=== PATIENT | male | born 1990 | race Caucasian/White ===

== ENCOUNTER 2017-02-25 11:18 | Emergency (ER) | payer OTHER ==
[~2017-02-25] VITALS: Ht 170.2 cm; Wt 77.1 kg
[~2017-02-25 11:18] MED LIST: NAPROXEN500 MG PO; NORCO 5-325 TA1 EACH PO
== END 2017-02-25 12:00 | disposition home or self-care (01) ==
LOC: ED 11:18
DX: Z00.8 Encounter for other general examination (principal)

== ENCOUNTER 2017-04-10 21:20 | Emergency (ER) | payer OTHER ==
[~2017-04-10] VITALS: Ht 170.2 cm; Wt 180.0 kg
--- OUTSIDE RECORDS SUMMARY | ~2017-04-10 | XMS | Clinical Summary ---
Demographics + + + | Address | [address] | | | [place] [address] | + + + | Home Phone | | + + + | Preferred Language | Unknown | + + + | Marital Status | Single | + + + | Restorationist Affiliation | Unknown | + + + | Race | Unknown | + + + | Ethnic Group | Other Race | + + + Author + + + | Author | [facility] | + + + | Organization | [facility] | + + + | Address | Unknown | + + + | Phone | Unavailable | + + + Support +------+ +---------+ + | Name | Relationship | Address | Phone | +------+ +---------+ + ECON | Unknown | | +------+ +---------+ + Care Team Providers + +------+ + | Care Link Assembler Name | Role | Phone | + +------+ + | No Pcp Per Patient | PP | Unavailable | + +------+ + Source Comments BUDDY is fully live on both [facility] Ambulatory and [facility] InPatient.[facility] Allergies + + + + + + [...]
--- OUTSIDE RECORDS SUMMARY | ~2017-04-10 | XMS | Clinical Summary ---
Demographics + + + | Address | [address] | | | [place] [address] | + + + | Home Phone | | + + + | Preferred Language | Unknown | + + + | Marital Status | Single | + + + | Buddhism Affiliation | Unknown | + + + | Race | Unknown | + + + | Ethnic Group | Other Race | + + + Author + + + | Author | [facility] | + + [...] Team Providers + +------+ + | Care Professional Development Instructor Name | Role | Phone | + +------+ + | No Pcp Per Patient | PP | Unavailable | + +------+ + Source Comments BUDDY is fully live on both [facility] Ambulatory and [facility] InPatient.[facility] Allergies + + + + + + [...]
== END 2017-04-10 23:05 | disposition home or self-care (01) ==
LOC: ED 21:20
DX: S46.911A Strain of unspecified muscle, fascia and tendon at shoulder and upper arm level, right arm, initial encounter (principal); S20.211A Contusion of right front wall of thorax, initial encounter; F17.200 Nicotine dependence, unspecified, uncomplicated; Y04.0XXA Assault by unarmed brawl or fight, initial encounter
CPT/HCPCS: 71045; 73030; 99283

== ENCOUNTER 2017-05-25 12:42 | Emergency (ER) | payer OTHER ==
[~2017-05-25] VITALS: Ht 170.2 cm; Wt 77.1 kg
--- OUTSIDE RECORDS SUMMARY | 2017-05-26 13:19 | XMS | Clinical Summary ---
Demographics + + + | Address | [address] | | | [place] [address] | + + + | Home Phone | | + + + | Preferred Language | Unknown | + + + | Marital Status | Single | + + + | Yarsanism Affiliation | Unknown | + + + | Race | Unknown | + + + | Ethnic Group | Other Race | + + + Author + + + | Author | [facility] | + + + | Organization | [facility] | + + + | Address | Unknown | + + + | Phone | Unavailable | + + + Support + + +---------+ + | Name | Relationship | Address | Phone | + + +---------+ + | KOBE HUGHES | ECON | Unknown | | + + +---------+ + Care Team Providers + +------+ + | Care Offset Pressman Name | Role | Phone | + +------+ + | No Pcp Per Patient | PP | Unavailable | + +------+ + Source Comments BUDDY is fully live on both [facility] Ambulatory and [facility] InPatient.[facility] Allergies + + + + + + | Active Allergy | Reactions | Severity | Noted | Comments | | | | | Date | | + + + + + + | Unable To Assess | Unknown | | 08/01/19 | | | | | | 16 | | + + + + + + Current Medications + + + +---------+------+------+-------+ | Prescription | Sig. | Disp. | Refills | Star | End | Statu | | | | | | t | Date | s | | | | | | Date | | | + + + +---------+------+------+-------+ | oxyCODONE, | Take 1-3 tablets by | 80 | 0 | 05/2 | | Activ | | immediate release, 5 | mouth every four | tablet | | 7/20 | | e | | mg oral tablet | hours as needed for | | | 16 | | | | | moderate pain. | | | | | | + + + +---------+------+------+-------+ | acetaminophen 500 | Take 2 tablets by | 100 | 0 | 05/2 | | Activ | | mg oral tablet | mouth every six | tablet | | 7/20 | | e | | | hours. | | | 16 | | | + + + +---------+------+------+-------+ | | Apply to affected | 28.34 g | 2 | 05/2 | | Activ | | bacitracin-polymyxin | area two times | | | 7/20 | | e | | B 500-10,000 | daily. | | | 16 | | | | unit/gram topical | | | | | | | | ointment | | | | | | | + + + +---------+------+------+-------+ | docusate sodium | Take 1 capsule by | 100 | 0 | 05/2 | | Activ | | 100 mg oral capsule | mouth two times | capsule | | 7/20 | | e | | | daily. | | | 16 | | | + + + +---------+------+------+-------+ | polyethylene | Mix 17 grams of | 119 g | 0 | 05/2 | | Activ | | glycol (MIRALAX) 17 | powder in 4 to 8 | | | 7/20 | | e | | gram/dose oral | ounces of liquid and | | | 16 | | | | powderIndications: | drink by mouth once | | | | | | | constipation | daily as needed. 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 | + + + | Open fracture of frontal bone, initial encounter (HCC) | 08/01/2015 | + + + Social History + + + +--------+------+ | Tobacco Use | Types | Packs/Day | Years | Date | | | | | Used | | + + + +--------+------+ | Current Every Day | Cigarettes | 0.5 | | | | Smoker | | | | | + + + +--------+------+ + +------+---+---+ | Smokeless Tobacco: | Chew | | | | Current User | | | | + +------+---+---+ + + +---------+ + | Alcohol Use | Drinks/We | oz/Week | Comments | | | ek | | | + + +---------+ + | Yes | | | | + + +---------+ + + + + | Sex Assigned at | Date Recorded | | | | + + + | Not on file | | + + + Last Filed Vital Signs + + + + | Vital Sign | Reading | Time Taken | + + + + | Blood Pressure | 127/57 | 08/03/2015 5:22 PM PDT | + + + + | Pulse | 51 | 08/03/2015 5:22 PM PDT | + + + + | Temperature | 36.5 C (97.7 F) | 08/03/2015 5:22 PM PDT | + + + + | Respiratory Rate | 16 | 08/03/2015 5:22 PM PDT | + + + + | Oxygen Saturation | 100% | 08/03/2015 5:22 PM PDT | + + + + | Inhaled Oxygen | - | - | | Concentration | | | + + + + | Weight | 79.2 kg (174 lb 9.7 | 08/01/2015 11:00 AM PDT | | | oz) | | + + + + | Height | 177.8 cm (5' 10") | 08/02/2015 9:06 AM PDT | + + + + | Body Mass Index | 25.05 | 08/01/2015 11:00 AM PDT | + + + + Plan of Treatment + + + + + | Health Maintenance | Due Date | Last Done | Comments | + + + + + | INFLUENZA VACCINE | | | | | (FLU SHOT) | 7 | | | + + + + + Results Not on filefrom Last 3 Months
--- OUTSIDE RECORDS SUMMARY | 2017-05-26 13:19 | XMS | Clinical Summary ---
Demographics + + + | Address | [address] | | | [place] [address] | + + + | Home Phone | | + + + | Preferred Language | Unknown | + + + | Marital Status | Single | + + + | Jewish Affiliation | Unknown | + + + [...] Team Providers + +------+ + | Care Doorshaker Name | Role | Phone | + +------+ + | No Pcp Per Patient | PP | Unavailable | + +------+ + Source Comments BUDDY is fully live on both [facility] Ambulatory and [facility] InPatient.[facility] Allergies + + + + + [...]
== END 2017-05-29 07:40 ==
LOC: ED 12:42
DX: R45.850 Homicidal ideations (principal); F17.200 Nicotine dependence, unspecified, uncomplicated
CPT/HCPCS: 80053; 80176; 81001; 85025; 99285; G0480

== ENCOUNTER 2017-11-07 21:06 | Emergency (ER) | payer SELFPAY ==
[~2017-11-07] VITALS: Ht 170.2 cm; Wt 72.6 kg
== END 2017-11-08 00:11 | disposition home or self-care (01) ==
LOC: ED 21:06
DX: T40.1X1A Poisoning by heroin, accidental (unintentional), initial encounter (principal); F17.200 Nicotine dependence, unspecified, uncomplicated
CPT/HCPCS: 99284

== ENCOUNTER 2018-11-22 09:33 | Emergency (ER) | payer OTHER ==
[~2018-11-22] VITALS: Ht 170.2 cm; Wt 77.1 kg
--- OUTSIDE RECORDS SUMMARY | 2018-11-22 09:36 | XMS ---
PreManage Notification: YOGESH RODRIGUEZ Security Allergy And Immunology Specialist Events 1 event(s) in the past 18 months Most recent security events: Verbal at [facility] 05/25/2017 12:42 - Patient was verbally abusive towards care providers, staff or patient. - Patient verbally threatened care providers, staff or other patients. Details: THREATENING TO KILL PEOPLE-ON PSYCH HOLD CRITERIA MET - Group Notification CARE PROVIDERS OSCAR LÓPEZ [facility] Current PHONE: Unknown [facility] Current PHONE: Unknown [facility] has no Care Guidelines for this patient. E.D. VISIT COUNT (12 MO.) 1 [facility] TOTAL 1 NOTE: Visits indicate total known visits. ED/UCC VISIT TRACKING (12 MO.) 11/22/2018 09:[address] [facility] [place] TYPE: Emergency COMPLAINT: - SKIN PROBLEM INPATIENT VISIT TRACKING (12 MO.) No inpatient visits to display in this time frame [id number]
[2018-11-22] MEDS ORDERED: DIVALPROEX SOD250 MG PO (09:44)
[2018-11-22] MEDS ORDERED: OLANZAPINE10 MG PO (09:44)
[2018-11-22] MEDS ORDERED: PENICILLIN V P500 MG PO (09:44)
[2018-11-22] MEDS ORDERED: CYCLOBENZAPRINE10 MG PO (09:44)
[2018-11-22] MEDS ORDERED: PREDNISONE20 MG PO (10:06)
== END 2018-11-22 11:15 | disposition home or self-care (01) ==
LOC: ED 09:33
DX: L50.9 Urticaria, unspecified (principal); F17.200 Nicotine dependence, unspecified, uncomplicated
CPT/HCPCS: 96372; 99282; 99406; J0171; J7512; Q0163

== ENCOUNTER 2019-09-18 05:23 | Emergency (ER) | payer OTHER ==
[~2019-09-18] VITALS: Ht 170.2 cm; Wt 77.1 kg
[~2019-09-18 05:23] MED LIST changes: +CYCLOBENZAPRINE10 MG PO; +DIVALPROEX SOD250 MG PO; +OLANZAPINE10 MG PO; +PENICILLIN V P500 MG PO; +PREDNISONE20 MG PO
--- OUTSIDE RECORDS SUMMARY | 2019-09-18 05:26 | XMS ---
PreManage Notification: YOGESH RODRIGUEZ Security Management Trainer Events No recent Security Events currently on file CRITERIA MET - Group Notification - [facility] - Has Care Guidelines CARE PROVIDERS PRAKASH KEANE Nurse Practitioner: Family [facility] PHONE: [phone] OSCAR LÓPEZ [facility] Current PHONE: [phone] Guidelines Source: [facility] Guidelines Date: 02/25/2019 Care Coordination: Has\T\nbsp;received\T\nbsp;mental health services with [facility].\T\nbsp; Please contact [facility] with mental health\T\nbsp;concerns.\T\nbsp; [facility] Guajardo: [phone]\T\nbsp; [place]: [phone]. Care History Medical/Surgical 11/23/2018 [facility] CASE MANAGEMENT REFERRAL MADE- PATIENT HAS [facility] AND NO PCP. E.D. VISIT COUNT (12 MO.) [address] [facility] [address] [facility] TOTAL 3 NOTE: Visits indicate total known visits. ED/UCC VISIT TRACKING (12 MO.) 09/18/2019 05:23 [facility] [place] TYPE: Emergency COMPLAINT: - POSS. OVERDOSE 02/18/2019 17:42 [facility] [place] TYPE: Emergency DIAGNOSES: 0. ABD PAIN X4 DAYS 11/22/2018 09:34 [facility] [place] TYPE: Emergency COMPLAINT: - SKIN PROBLEM DIAGNOSES: - Rash and other nonspecific skin eruption - Nicotine dependence, unspecified, uncomplicated - Urticaria, unspecified INPATIENT VISIT TRACKING (12 MO.) No inpatient visits to display in this time frame [email or web address]
== END 2019-09-18 06:40 | disposition home or self-care (01) ==
LOC: ED 05:23
DX: T43.621A Poisoning by amphetamines, accidental (unintentional), initial encounter (principal); F17.200 Nicotine dependence, unspecified, uncomplicated
CPT/HCPCS: 80053; 80176; 81001; 84443; 85025; 99284-25; G0480

== ENCOUNTER 2019-11-29 03:44 | Emergency (ER) | payer SELFPAY ==
[~2019-11-29] VITALS: Ht 170.2 cm; Wt 77.1 kg
--- OUTSIDE RECORDS SUMMARY | ~2019-11-29 | XMS | Encounter Summary ---
Demographics + + + | Address | [address] | | | [place] [address] | + + + | Home Phone | | + + + | Preferred Language | Unknown | + + + | Marital Status | Single | + + + | Episcopalian Affiliation | Unknown | + + + | Race | Unknown | + + + | Ethnic Group | Other Race | + + + Author + + + | Author | [facility] | + + + | Organization | [facility] | + + + | Address | Unknown | + + + | Phone | Unavailable | + + + Support + + +---------+ + | Name | Relationship | Address | Phone | + + +---------+ + | Michelet Hughes | ECON | Unknown | | + + +---------+ + Care Team Providers + +------+ + | Care Retail Sales Associate Seasonal Name | Role | Phone | + +------+ + | No Pcp Per Patient | PCP | Unavailable | + +------+ + Encounter Details +--------+ + + + + | Date | Type | Department | Care Team | Description | +--------+ + + + + | 08/11/ | Pharmacy | Specialty Pharmacy | | | | 2017 | Visit | [address] | | | | | | [place], [place] | | | | | | [address] | | | | | | [phone] | | | +--------+ + + + + Social History + + [...] + +---------+ + | Alcohol Use | Drinks/Week | oz/Week | Comments | + + +---------+ + | Yes | | | | + + +---------+ + + + + | Sex Assigned at | Date Recorded | | | | + + + | Not on file | | + + + documented as of this encounter Plan of Treatment Not on filedocumented as of this encounter Visit Diagnoses Not on filedocumented in this encounter"
--- OUTSIDE RECORDS SUMMARY | ~2019-11-29 | XMS | Clinical Summary ---
Demographics + + + | Address | [address] | | | [place] [address] | + + + | Home Phone | | + + + | Preferred Language | Unknown | + + + | Marital Status | Single | + + + | Denominational Affiliation | Unknown | + + + [...] Team Providers + +------+ + | Care Serologist Name | Role | Phone | + +------+ + | No Pcp Per Patient | PCP | Unavailable | + +------+ + Source Comments BUDDY is fully live on both [facility] Allergies + + + + + + | Active Allergy | Reactions | Severity | Noted | Comments | | | | | Date | | + + + + + + | Unable To Assess | Unknown | | 08/01/19 | | | | | | 16 | | + + + + + + Medications + + + +---------+------+------+-------+ | Medication | Sig | Dispensed | Refills | Star | End | [...] Open fracture of frontal bone, initial encounter | 08/01/2015 | + + + Social [...] Filed Vital Signs + + + + + | Vital Sign | Reading | Time Taken | Comments | + + + + + | Blood Pressure | 127/57 | 08/03/2015 5:22 PM | | | | | PDT | | + + + + + | Pulse | 51 | 08/03/2015 5:22 PM | | | | | PDT | | + + + + + | Temperature | 36.5 C (97.7 F) | 08/03/2015 5:22 PM | | | | | PDT | | + + + + + | Respiratory Rate | 16 | 08/03/2015 5:22 PM | | | | | PDT | | + + + + + | Oxygen Saturation | 100% | 08/03/2015 5:22 PM | | | | | PDT | | + + + + + | Inhaled Oxygen | - | - | | | Concentration | | | | + + + + + | Weight | 79.2 kg (174 lb 9.7 | 08/01/2015 11:00 AM | | | | oz) | PDT | | + + + + + | Height | 177.8 cm (5' 10") | 08/02/2015 9:06 AM | | | | | PDT | | + + + + + | Body Mass Index | 25.05 | 08/01/2015 11:00 AM | | | | | PDT | | + + + + + Plan of Treatment + + +-------+ + | Health Maintenance | Due Date | Last | Comments | | | | Done | | + + +-------+ + | Pneumococcal | | | | | vaccination (1 of 1 | 6 | | | | - PPSV23) | | | | + + +-------+ + | Influenza (Flu) | | | | | vaccination (#1) | 0 | | | + + +-------+ + Results Not on filefrom Last 3 Months Insurance + +--------+ +--------+ + +--------+ | Payer | Benefi | Subscriber | Effect | Phone | Address | Type | | | t Plan | ID | elyse | | | | | | / | | Dates | | | | | | Group | | | | | | + +--------+ +--------+ + +--------+ | [place] | OHP | [id number] | | [phone] | [address] | | | PLUS | | [phone] | id | | | OPEN | | esent | | [place], [place] | | | | CARD | | | | [id number] | | + +--------+ +--------+ + +--------+ + +--------+ +--------+ + + | Guarantor Name | Accoun | Relation to | Date | Phone | Billing Address | | | t Type | Patient | of | | | | | | | | | | + +--------+ +--------+ + + | Dagoberto Hughes | Person | Self | [birth year] | | [address] | | | al/Fam | | 1990 | | [place] [address] | | | celsa | | | 5 (Home) | | + +--------+ +--------+ + + | Dagoberto Hughes | Agency | Self | [birth year] | | [address] | | | | | 1990 | | [place] [address] | | | | | | 5 (Home) | | + +--------+ +--------+ + + Advance Directives + + + + + | Code Status | Date | Date | Comments | | | Activated | Inactivated | | + + + + + | Full Code | 08/01/2015 | 08/04/2015 | | | | 10:43 AM | 12:19 AM | | + + + + +
--- OUTSIDE RECORDS SUMMARY | ~2019-11-29 | XMS | Encounter Summary ---
Demographics + + + | Address | [address] | | | [place] [address] | + + + | Home Phone | | + + + | Preferred Language | Unknown | + + + | Marital Status | Single | + + + | Taoist Affiliation | Unknown | + + + | Race | Unknown | + + + | Ethnic Group | Other Race | + + + Author + + + | Author | [facility] | + + + | Organization | [facility] | + + + | Address | Unknown | + + + | Phone | Unavailable | + + + Support + + +---------+ + | Name | Relationship | Address | Phone | + + +---------+ + | Michelet Hughes | ECON | Unknown | | + + +---------+ + Care Team Providers + +------+ + | Care Hand Mica Plate Layer Name | Role | Phone | + +------+ + | No Pcp Per Patient | PCP | Unavailable | + +------+ + Encounter Details +--------+ + + + + | Date | Type | Department | Care Team | Description | +--------+ + + + + | 08/06/ | Document-Sc | UNKNOWN DEPARTMENT | Unknown . | | | 2016 | anned | [address] | | | | | | [address] | | | | | | [place], [place] | | | | | | [address] | | | +--------+ + + + [...]
--- OUTSIDE RECORDS SUMMARY | ~2019-11-29 | XMS | Encounter Summary ---
Demographics + + + | Address | [address] | | | [place] [address] | + + + | Home Phone | | + + + | Preferred Language | Unknown | + + + | Marital Status | Single | + + + | Church Affiliation | Unknown | + + + | Race | Unknown | + + + | Ethnic Group | Other Race | + + + Author + + + | Author | [facility] | + + + | Organization | [facility] | + + + | Address | Unknown | + + + | Phone | Unavailable | + + + Support + + +---------+ + | Name | Relationship | Address | Phone | + + +---------+ + | Michelet Hughes | ECON | Unknown | | + + +---------+ + Care Team Providers + +------+ + | Care General Laborer Name | Role | Phone | + +------+ + | No Pcp Per Patient | PCP | Unavailable | + +------+ + Encounter Details +--------+ + + + + | Date | Type | Department | Care Team | Description | +--------+ + + + + | 08/02/ | Pharmacy | Outpatient Retail | | | | 2015 | Visit | [facility] | | | | | | [address] | | | | | | [address] [place], [place] | | | | | | [address] | | | | | | [phone] | | | +--------+ + + + [...]
--- OUTSIDE RECORDS SUMMARY | ~2019-11-29 | XMS | Encounter Summary ---
Demographics + + + | Address | [address] | | | [place] [address] | + + + | Home Phone | | + + + | Preferred Language | Unknown | + + + | Marital Status | Single | + + + | Quaker Affiliation | Unknown | + + + | Race | Unknown | + + + | Ethnic Group | Other Race | + + + Author + + + | Author | [facility] | + + + | Organization | [facility] | + + + | Address | Unknown | + + + | Phone | Unavailable | + + + Support + + +---------+ + | Name | Relationship | Address | Phone | + + +---------+ + | Michelet Hughes | ECON | Unknown | | + + +---------+ + Care Team Providers + +------+ + | Care Under Ground Miner Name | Role | Phone | + +------+ + | No Pcp Per Patient | PCP | Unavailable | + +------+ + Encounter Details +--------+ + + + + | Date | Type | Department | Care Team | Description | +--------+ + + + + | 08/03/ | Document-Sc | UNKNOWN DEPARTMENT | Unknown . | | | 2016 | anned | [address] | | | | | | [address] | | | | | | [place], [place] | | | | | | [address] | | | +--------+ + + + [...]
--- OUTSIDE RECORDS SUMMARY | ~2019-11-29 | XMS | Encounter Summary ---
Demographics + + + | Address | [address] | | | [place] [address] | + + + | Home Phone | | + + + | Preferred Language | Unknown | + + + | Marital Status | Single | + + + | Mormon Affiliation | Unknown | + + + | Race | Unknown | + + + | Ethnic Group | Other Race | + + + Author + + + | Author | [facility] | + + + | Organization | [facility] | + + + | Address | Unknown | + + + | Phone | Unavailable | + + + Support + + +---------+ + | Name | Relationship | Address | Phone | + + +---------+ + | Michelet Hughes | ECON | Unknown | | + + +---------+ + Care Team Providers + +------+ + | Care Erosion Control Coordinator Name | Role | Phone | + +------+ + | No Pcp Per Patient | PCP | Unavailable | + +------+ + Encounter Details +--------+ + + + + | Date | Type | Department | Care Team | Description | +--------+ + + + + | 08/02/ | Ophth Exam | [facility] | Sintia Dean | | | 2015 | | [facility] | [address] | | | | | [address] [facility] | Joce Kumar | | | | | [address] | [place], [place] | | | | | [facility] [place], [address] [facility] [address] [facility] | [address] | | | | | [place], [place] | [phone] | | | | | [address] | | | +--------+ + + + [...]
--- OUTSIDE RECORDS SUMMARY | ~2019-11-29 | XMS | Encounter Summary ---
Demographics + + + | Address | [address] | | | [place] [address] | + + + | Home Phone | | + + + | Preferred Language | Unknown | + + + | Marital Status | Single | + + + | Mormonism Affiliation | Unknown | + + + | Race | Unknown | + + + | Ethnic Group | Other Race | + + + Author + + + | Author | [facility] | + + + | Organization | [facility] | + + + | Address | Unknown | + + + | Phone | Unavailable | + + + Support + + +---------+ + | Name | Relationship | Address | Phone | + + +---------+ + | Michelet Hughes | ECON | Unknown | | + + +---------+ + Care Team Providers + +------+ + | Care Filter Screen Cleaner Name | Role | Phone | + +------+ + | No Pcp Per Patient | PCP | Unavailable | + +------+ + Encounter Details +--------+ + + + + | Date | Type | Department | Care Team | Description | +--------+ + + + + | 07/31/ | Document-Sc | UNKNOWN DEPARTMENT | Unknown . | | | 2016 | anned | [address] | | | | | | [address] | | | | | | [place], [place] | | | | | | [address] | | | +--------+ + + + [...] Not on filedocumented as of this encounter Procedures + +--------+ + + + | Procedure Name | Priori | Date/Time | Associated Diagnosis | Comments | | | ty | | | | + +--------+ + + + | RADIOLOGY | | 08/01/2015 | | Results for this | | | | 12:00 AM | | procedure are in the | | | | PDT | | results section. | + +--------+ + + + documented in this encounter Results RADIOLOGY (08/01/2015 12:00 AM PDT) + + + | Narrative | Performed At | + + + | | | + + + documented in this encounter Visit Diagnoses Not on filedocumented in this encounter"
--- OUTSIDE RECORDS SUMMARY | ~2019-11-29 | XMS | Encounter Summary ---
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 medical issues, intubated, sedated, CT: free air in brain, frontal skull fx, laceration, possible air communication through wou nd from bagging, in c-collar, vitals stable, labs normal, white ct 17, Level [address] Aldana. documented in this encounter Plan of Treatment + +------+--------+ + + | Name | Type | Priori | Associated Diagnoses | Order Schedule | | | | ty | | | + +------+--------+ + + | BETA-2 TRANSFERRIN | Lab | Routin | | Collect Now for 1 | | | | e | | Occurrences starting | | | | | | 08/02/2015 until | | | | | | 08/02/2015 | + +------+--------+ + + documented as of this encounter Procedures + +--------+ + + + | Procedure Name | Priori | Date/Time | Associated Diagnosis | Comments | | | ty | | | | + +--------+ + + + | CAPILLARY BLOOD | Routin | 08/03/2015 | Pneumocephalus | Results for this | | GLUCOSE (NO CHG), | e | 8:26 AM | | procedure are in the | | POC | | PDT | | results section. | + +--------+ + + + | CBC (HEMOGRAM) ONLY | Routin | 08/03/2015 | | Results for this | | | e | 12:15 AM | | procedure are in the | | | | PDT | | results section. | + +--------+ + + + | RENAL FUNCTION SET | Urgent | 08/03/2015 | | Results for this | | (NA,K,CL,CO2,BUN,CRE | | 12:15 AM | | procedure are in the | | AT,GLUC,CA,PHOS,ALB | | PDT | | results section. | | ) | | | | | + +--------+ + + + | CBC ONLY | Routin | 08/03/2015 | | Results for this | | | e | 12:15 AM | | procedure are in the | | | | PDT | | results section. | + +--------+ + + + | MAGNESIUM, PLASMA | Urgent | 08/03/2015 | | Results for this | | | | 12:15 AM | | procedure are in the | | | | PDT | | results section. | + +--------+ + + + | X-RAY SHOULDER 3+ | Routin | 08/02/2015 | | Results for this | | VIEWS RIGHT | e | 9:37 PM | | procedure are in the | | | | PDT | | results section. | + +--------+ + + + | X-RAY ELBOW 2 VIEWS | Routin | 08/02/2015 | | Results for this | | RIGHT | e | 9:37 PM | | procedure are in the | | | | PDT | | results section. | + +--------+ + + + | CT HEAD WO CONTRAST | Urgent | 08/02/2015 | | Results for this | | | | 12:15 PM | | procedure are in the | | | | PDT | | results section. | + +--------+ + + + | CBC (HEMOGRAM) ONLY | Routin | 08/02/2015 | | Results for this | | | e | 2:11 AM | | procedure are in the | | | | PDT | | results section. | + +--------+ + + + | RENAL FUNCTION SET | Urgent | 08/02/2015 | | Results for this | | (NA,K,CL,CO2,BUN,CRE | | 2:11 AM | | procedure are in the | | AT,GLUC,CA,PHOS,ALB | | PDT | | results section. | | ) | | | | | + +--------+ + + + | CBC ONLY | Routin | 08/02/2015 | | Results for this | | | e | 2:11 AM | | procedure are in the | | | | PDT | | results section. | + +--------+ + + + | MAGNESIUM, PLASMA | Urgent | 08/02/2015 | | Results for this | | | | 2:11 AM | | procedure are in the | | | | PDT | | results section. | + +--------+ + + + | X-RAY PORTABLE CHEST | Urgent | 08/02/2015 | | Results for this | | 1 VIEW | | 1:14 AM | | procedure are in the | | | | PDT | | results section. | + +--------+ + + + | CT HEAD WO CONTRAST | Routin | 08/01/2015 | | Results for this | | | e | 1:28 PM | | procedure are in the | | | | PDT | | results section. | + +--------+ + + + | CHEM 8 W/H&H,POC | Urgent | 08/01/2015 | Pneumocephalus | Results for this | | | | 10:33 AM | | procedure are in the | | | | PDT | | results section. | + +--------+ + + + | X-RAY PORTABLE CHEST | Urgent | 08/01/2015 | | Results for this | | 1 VIEW | | 10:33 AM | | procedure are in the | | | | PDT | | results section. | + +--------+ + + + | HAKEEM LAY | Urgent | 08/01/2015 | Pneumocephalus | Results for this | | | | 10:29 AM | | procedure are in the | | | | PDT | | results section. | + +--------+ + + + | ANTIBODY SCREEN | Urgent | 08/01/2015 | | Results for this | | | | 9:35 AM | | procedure are in the | | | | PDT | | results section. | + +--------+ + + + | TYPE AND SCREEN | Urgent | 08/01/2015 | | Results for this | | | | 9:35 AM | | procedure are in the | | | | PDT | | results section. | + +--------+ + + + | ABO & RH TYPE | Urgent | 08/01/2015 | | Results for this | | | | 9:35 AM | | procedure are in the | | | | PDT | | results section. | + +--------+ + + + | RAINBOW HOLD TUBE - | Urgent | 08/01/2015 | | | | RED TOP | | 9:35 AM | | | | | | PDT | | | + +--------+ + + + | CBC (HEMOGRAM) ONLY | Urgent | 08/01/2015 | | Results for this | | | | 9:35 AM | | procedure are in the | | | | PDT | | results section. | + +--------+ + + + | RAINBOW HOLD, CORE | Urgent | 08/01/2015 | | Results for this | | PANEL | | 9:35 AM | | procedure are in the | | | | PDT | | results section. | + +--------+ + + + | CBC ONLY | Urgent | 08/01/2015 | | Results for this | | | | 9:35 AM | | procedure are in the | | | | PDT | | results section. | + +--------+ + + + | COAGULOPATHY PANEL | Urgent | 08/01/2015 | | Results for this | | (INR,APTT,FIBRINOGEN | | 9:35 AM | | procedure are in the | | ) | | PDT | | results section. | + +--------+ + + + | ETHANOL (ALCOHOL), | Urgent | 08/01/2015 | | Results for this | | BLOOD | | 9:35 AM | | procedure are in the | | | | PDT | | results section. | + +--------+ + + + | GLUCOSE, PLASMA | Urgent | 08/01/2015 | | Results for this | | | | 9:35 AM | | procedure are in the | | | | PDT | | results section. | + +--------+ + + + | CONFIRMATORY ABO/RH | Routin | 08/01/2015 | | Results for this | | | e | 9:35 AM | | procedure are in the | | | | PDT | | results section. | + +--------+ + + + | DIAGNOSTIC STUDIES | | 08/01/2015 | | Results for this | | | | 12:00 AM | | procedure are in the | | | | PDT | | results section. | + +--------+ + + + | RADIOLOGY | | 08/01/2015 | | Results for this | | | | 12:00 AM | | procedure are in the | | | | PDT | | results section. | + +--------+ + + + documented in this encounter Results CAPILLARY BLOOD GLUCOSE (NO CHG), POC (08/03/2015 8:26 AM PDT) + +---------+ + + + | Component | Value | Ref Range | Performed | Pathologist | | | | | At | Signature | + +---------+ + + + | BLOOD | 109 (H) | 60 - 99 mg/dL | [facility] - | | | GLUCOSE, | | | [facility] | | | POC | | | [facility] | | | | | | OF CARE | | | | | | TESTS | | + +---------+ + + + + + | Specimen | + + | | + + + + + + + | Performing | Address | City/State/Zipcode | Phone Number | | Organization | | | | + + + + + | [facility] | [address] | [place], [place] | | | [facility] | [address] | [address] | | | TESTS | | | | + + + + + CBC (HEMOGRAM) ONLY (08/03/2015 12:15 AM PDT) + + + + + + | Component | Value | Ref Range | Performed | Pathologist | | | | | At | Signature | + + + + + + | WHITE CELL | 11.16 (H) | 4.40 - 11.00 | [facility] | | | COUNT | | K/cu mm | LABORATORY | | | | | | SERVICES, | | | | | | CORE | | + + + + + + | RED CELL | 4.09 (L) | 4.50 - 6.00 | [facility] | | | COUNT | | M/cu mm | LABORATORY | | | | | | SERVICES, | | | | | | CORE | | + + + + + + | HEMOGLOBIN | 13.1 (L) | 13.5 - 17.5 | [facility] | | | | | g/dL | LABORATORY | | | | | | SERVICES, | | | | | | CORE | | + + + + + + | HEMATOCRIT | 38.1 (L) | 41.0 - 53.0 % | [facility] | | | | | | LABORATORY | | | | | | SERVICES, | | | | | | CORE | | + + + + + + | MCV | 93.2 | 80.0 - 96.0 fL | [facility] | | | | | | LABORATORY | | | | | | SERVICES, | | | | | | CORE | | + + + + + + | MCHC | 34.4 | 33.0 - 35.5 | [facility] | | | | | g/dL | LABORATORY | | | | | | SERVICES, | | | | | | CORE | | + + + + + + | RDW SD | 42.9 | 35.1 - 46.3 fL | [facility] | | | | | | LABORATORY | | | | | | SERVICES, | | | | | | CORE | | + + + + + + | PLATELET | 240 | 150 - 400 K/cu | [facility] | | | COUNT | | mm | LABORATORY | | | | | | SERVICES, | | | | | | CORE | | + + + + + + | MPV | 10.7 | 9.7 - 12.3 fL | [facility] | | | | | | LABORATORY | | | | | | SERVICES, | | | | | | CORE | | + + + + + + | NRBC% | 0.0 | 0.0 - 0.3 % | [facility] | | | | | | LABORATORY | | | | | | SERVICES, | | | | | | CORE | | + + + + + + | NRBC# | 0.00 | 0.00 - 0.02 | [facility] | | | | | K/cu mm | LABORATORY | | | | | | SERVICES, | | | | | | CORE | | + + + + + + + + | Specimen | + + | Blood - Blood | | (substance) | + + + + + + + | Performing | Address | City/State/Zipcode | Phone Number | | Organization | | | | + + + + + | [facility] | [address] | [place] [address] | | | SERVICES, CORE | [address] | | | + + + + + RENAL FUNCTION SET (NA,K,CL,CO2,BUN,CREAT,GLUC,CA,PHOS,ALB ) (08/03/2015 12:15 AM PDT) + +---------+ + + + | Component | Value | Ref Range | Performed | Pathologist | | | | | At | Signature | + +---------+ + + + | GLUCOSE, | 99 | 60 - 99 mg/dL | [facility] | | | PLASMA | | | LABORATORY | | | (LAB) | | | SERVICES, | | | | | | CORE | | + +---------+ + + + | BUN, PLASMA | 7 | 6 - 20 mg/dL | [facility] | | | (LAB) | | | LABORATORY | | | | | | SERVICES, | | | | | | CORE | | + +---------+ + + + | CREATININE | 0.84 | 0.70 - 1.30 | [facility] | | | PLASMA | | mg/dL | LABORATORY | | | (LAB) | | | SERVICES, | | | | | | CORE | | + +---------+ + + + | EGFR | >60 | >60 mL/min | [facility] | | | - | | | LABORATORY | | | SPANISH | | | SERVICES, | | | | | | CORE | | + +---------+ + + + | EGFR NON | >60 | >60 mL/min | [facility] | | | -BINH | | | LABORATORY | | | RICAN | | | SERVICES, | | | | | | CORE | | + +---------+ + + + | SODIUM, | 139 | 136 - 145 | [facility] | | | PLASMA | | mmol/L | LABORATORY | | | (LAB) | | | SERVICES, | | | | | | CORE | | + +---------+ + + + | POTASSIUM, | 4.0 | 3.4 - 5.0 | [facility] | | | PLASMA | | mmol/L | LABORATORY | | | (LAB) | | | SERVICES, | | | | | | CORE | | + +---------+ + + + | CHLORIDE, | 103 | 97 - 108 mmol/L | [facility] | | | PLASMA | | | LABORATORY | | | (LAB) | | | SERVICES, | | | | | | CORE | | + +---------+ + + + | TOTAL CO2, | 28 | 21 - 32 mmol/L | [facility] | | | PLASMA | | | LABORATORY | | | (LAB) | | | SERVICES, | | | | | | CORE | | + +---------+ + + + | CALCIUM, | 8.4 (L) | 8.6 - 10.2 | [facility] | | | PLASMA | | mg/dL | LABORATORY | | | (LAB) | | | SERVICES, | | | | | | CORE | | + +---------+ + + + | ALBUMIN, | 3.2 (L) | 3.5 - 4.7 g/dL | [facility] | | | PLASMA | | | LABORATORY | | | (LAB) | | | SERVICES, | | | | | | CORE | | + +---------+ + + + | PHOSPHORUS, | 3.8 | 2.4 - 4.7 mg/dL | [facility] | | | PLASMA | | | LABORATORY | | | (LAB) | | | SERVICES, | | | | | | CORE | | + +---------+ + + + | POTASSIUM | No Hemo | | [facility] | | | CMNT | | | LABORATORY | | | | | | SERVICES, | | | | | | CORE | | + +---------+ + + + | ANION GAP | 8 | mmol/L | [facility] | | | | | | LABORATORY | | | | | | SERVICES, | | | | | | CORE | | + +---------+ + + + | ANION | 10 | 4 - 11 mmol/L | [facility] | | | GAP(ALB | | | LABORATORY | | | CORRECTED) | | | SERVICES, | | | | | | CORE | | + +---------+ + + + + + | Specimen | + + | Blood - Blood | | (substance) | + + + + + | Narrative | Performed At | + + + | GFR is estimated using the MDRD equation recommended by the | [facility] | | National Kidney Disease Education Program. Estimated GFR | LABORATORY | | Interpretive Information: <60 mL/min/1.73 sq m | SERVICES, CORE | | Chronic Kidney Disease <15 mL/min/1.73 sq m | | | Kidney Failure Estimated GFR greater that 60 mL/min/1.73 sq m is of | | | limited clinical value. The MDRD equation is not valid in the | | | following situations: - Patients under 18 years of age - Severe | | | malnutrition or obesity - Vegetarian diet - Rapidly changing kidney | | | function | | + + + + + + + + | Performing | Address | City/State/Zipcode | Phone Number | | Organization | | | | + + + + + | [facility] | [address] | [place] [address] | | | SERVICES, CORE | [address] | | | + + + + + MAGNESIUM, PLASMA (08/03/2015 12:15 AM PDT) + +-------+ + + + | Component | Value | Ref Range | Performed | Pathologist | | | | | At | Signature | + +-------+ + + + | MAGNESIUM,P | 2.1 | 1.8 - 2.5 mg/dL | [facility] | | | LASMA | | | LABORATORY | | | | | | SERVICES, | | | | | | CORE | | + +-------+ + + + + + | Specimen | + + | Blood - Blood | | (substance) | + + + + + + + | Performing | Address | City/State/Zipcode | Phone Number | | Organization | | | | + + + + + | [facility] | [address] | [place] [address] | | | [place] | [place] | | | + + + + + X-RAY SHOULDER 3+ VIEWS RIGHT (08/02/2015 9:37 PM PDT) + + + + + + | Component | Value | Ref Range | Performed | Pathologist | | | | | At | Signature | + + + + + + | SHOULDER 3+ | STUDY: SHOULDER 3 VIEWS | | | | | VIEWS | RIGHT 08/02/15 21:37:00 | | | | | RIGHT | INDICATION: Shoulder | | | | | | pain. COMPARISON: None. | | | | | | FINDINGS: There is no | | | | | | fracture or focal | | | | | | osseous destruction. | | | | | | Joint spaces of | | | | | | theglenohumeral and | | | | | | acromioclavicular joints | | | | | | are maintained. Soft | | | | | | tissues arenormal in | | | | | | appearance. IMPRESSION: | | | | | | Normal right shoulder. | | | | | | Attending Radiologists: | | | | | | JOSE MANUEL BARRETO, | | | | | | MDAuthor: AVINASH | | | | | | MD MARIA R I personally | | | | | | reviewed the images and, | | | | | | if necessary, edited | | | | | | the report. I agreewith | | | | | | the report as now | | | | | | presented. | | | | | | Final/Electronically | | | | | | oanh / JOSE MANUEL | | | | | | ESTEVAN 08/03/2015 9:27 | | | | | | AM | | | | + + + + + + + + | Specimen | + + | | + + + +---------+ + + | Performing | Address | City/State/Zipcode | Phone Number | | Organization | | | | + +---------+ + + | [facility] | | | | [facility] | | | | + +---------+ + + X-RAY ELBOW 2 VIEWS RIGHT (08/02/2015 9:37 PM PDT) + + + + + + | Component | Value | Ref Range | Performed | Pathologist | | | | | At | Signature | + + + + + + | ELBOW 2 | STUDY: ELBOW 2 VIEWS | | | | | VIEWS RIGHT | RIGHT 08/02/15 21:37:00 | | | | | | HISTORY: Pain. Trauma. | | | | | | COMPARISON: None. | | | | | | FINDINGS: There is a | | | | | | very subtle lucency | | | | | | extending through the | | | | | | medial aspect of | | | | | | theradial head, possibly | | | | | | artifactual although a | | | | | | hairline nondisplaced | | | | | | fracture isconceivable. | | | | | | No additional fracture | | | | | | or focal destruction is | | | | | | identified. Jointspaces | | | | | | are maintained and | | | | | | alignment is normal. A | | | | | | trace joint effusion | | | | | | issuspected without | | | | | | additional soft tissue | | | | | | abnormality. IMPRESSION: | | | | | | Subtle lucency within | | | | | | the radial head, | | | | | | possibly artifactual, | | | | | | although ahairline | | | | | | nondisplaced fracture is | | | | | | conceivable. Suspected | | | | | | trace joint effusion. | | | | | | Attending Radiologists: | | | | | | JOSE MANUEL BRARETO, | | | | | | MDAuthor: JOSE MANUEL | | | | | | MD ESTEVAN I personally | | | | | | reviewed the images | | | | | | and, if necessary, | | | | | | edited the report. I | | | | | | agreewith the report as | | | | | | now presented. | | | | | | Final/Electronically | | | | | | signed / JOSE MANUEL | | | | | | ESTEVAN 08/03/2015 8:47 | | | | | | AM | | | | + + + + + + + + | Specimen | + + | | + + + +---------+ + + | Performing | Address | City/State/Zipcode | Phone Number | | Organization | | | | + +---------+ + + | [facility] | | | | [facility] | | | | + +---------+ + + CT HEAD WO CONTRAST (08/02/2015 12:15 PM PDT) + + + + + + | Component | Value | Ref Range | Performed | Pathologist | | | | | At | Signature | + + + + + + | CT HEAD WO | EXAM: CT head without | | | | | CONTRAST | contrast HISTORY: | | | | | | Followup pneumocephalus | | | | | | COMPARISON: 08/01/15 | | | | | | TECHNIQUE: CT of the | | | | | | head without contrast. | | | | | | FINDINGS: Brain: There | | | | | | has been interval near | | | | | | complete resolution of | | | | | | previously | | | | | | seenintracranial | | | | | | extra-axial | | | | | | pneumocephalus a tiny | | | | | | residual tiny | | | | | | pneumocephaluswithin the | | | | | | anterior aspect of | | | | | | interhemispheric fissure | | | | | | on the right. | | | | | | Tracesubdural blood | | | | | | products along the | | | | | | posterior aspect of | | | | | | falx, unchanged. No | | | | | | acuteintracranial | | | | | | abnormality. No | | | | | | evidence of new | | | | | | hemorrhage, mass, or | | | | | | acuteterritorial | | | | | | infarction. The | | | | | | ventricles are normal in | | | | | | size and morphology. | | | | | | Soft tissues: Partially | | | | | | visualized periorbital | | | | | | soft tissue | | | | | | swellingSkull and skull | | | | | | base: No fractures or | | | | | | destructive lesions. | | | | | | Mastoids and middleears | | | | | | are | | | | | | unremarkable.Face/orbits | | | | | | : Visualized portions | | | | | | are | | | | | | unremarkable.Paranasal | | | | | | sinuses: Redemonstration | | | | | | of bilateral frontal | | | | | | sinus fractures | | | | | | andhemorrhagic fluid in | | | | | | paranasal sinuses | | | | | | IMPRESSION: Near | | | | | | complete resolution of | | | | | | intracranial | | | | | | pneumocephalus with tiny | | | | | | residual.Stable trace | | | | | | parafalcine subdural | | | | | | blood products. | | | | | | Partially | | | | | | visualizedbilateral | | | | | | facial fractures better | | | | | | seen on dedicated | | | | | | outside maxillofacial | | | | | | CT.Nonew findings. | | | | | | Attending Radiologists: | | | | | | JONNA KRUGER MDAuthor: | | | | | | JONNA KRUGER MD I | | | | | | personally reviewed the | | | | | | images and, if | | | | | | necessary, edited the | | | | | | report. I agreewith the | | | | | | report as now presented. | | | | | | | | | | | | Final/Electronically | | | | | | signed / JONNA KRUGER | | | | | | 08/02/2015 12:28 PM | | | | + + + + + + + + | Specimen | + + | | + + + +---------+ + + | Performing | Address | City/State/Zipcode | Phone Number | | Organization | | | | + +---------+ + + | [facility] | | | | [facility] | | | | + +---------+ + + CBC (HEMOGRAM) ONLY (08/02/2015 2:11 AM PDT) + + + + + + | Component | Value | Ref Range | Performed | Pathologist | | | | | At | Signature | + + + + + + | WHITE CELL | 13.11 (H) | 4.40 - 11.00 | [facility] | | | COUNT | | K/cu mm | LABORATORY | | | | | | SERVICES, | | | | | | CORE | | + + + + + + | RED CELL | 4.12 (L) | 4.50 - 6.00 | [facility] | | | COUNT | | M/cu mm | LABORATORY | | | | | | SERVICES, | | | | | | CORE | | + + + + + + | HEMOGLOBIN | 13.2 (L) | 13.5 - 17.5 | [facility] | | | | | g/dL | LABORATORY | | | | | | SERVICES, | | | | | | CORE | | + + + + + + | HEMATOCRIT | 37.8 (L) | 41.0 - 53.0 % | [facility] | | | | | | LABORATORY | | | | | | SERVICES, | | | | | | CORE | | + + + + + + | MCV | 91.7 | 80.0 - 96.0 fL | [facility] | | | | | | LABORATORY | | | | | | SERVICES, | | | | | | CORE | | + + + + + + | MCHC | 34.9 | 33.0 - 35.5 | [facility] | | | | | g/dL | LABORATORY | | | | | | SERVICES, | | | | | | CORE | | + + + + + + | RDW SD | 43.8 | 35.1 - 46.3 fL | [facility] | | | | | | LABORATORY | | | | | | SERVICES, | | | | | | CORE | | + + + + + + | PLATELET | 213 | 150 - 400 K/cu | [facility] | | | COUNT | | mm | LABORATORY | | | | | | SERVICES, | | | | | | CORE | | + + + + + + | MPV | 10.4 | 9.7 - 12.3 fL | [facility] | | | | | | LABORATORY | | | | | | SERVICES, | | | | | | CORE | | + + + + + + | NRBC% | 0.0 | 0.0 - 0.3 % | [facility] | | | | | | LABORATORY | | | | | | SERVICES, | | | | | | CORE | | + + + + + + | NRBC# | 0.00 | 0.00 - 0.02 | [facility] | | | | | K/cu mm | LABORATORY | | | | | | SERVICES, | | | | | | CORE | | + + + + + + + + | Specimen | + + | Blood - Blood | | (substance) | + + + + + + + | Performing | Address | City/State/Zipcode | Phone Number | | Organization | | | | + + + + + | [facility] | [address] | [place] [address] | | | [place], CORE | [address] | | | + + + + + RENAL FUNCTION SET (NA,K,CL,CO2,BUN,CREAT,GLUC,CA,PHOS,ALB ) (08/02/2015 2:11 AM PDT) + + + + + + | Component | Value | Ref Range | Performed | Pathologist | | | | | At | Signature | + + + + + + | GLUCOSE, | 101 (H) | 60 - 99 mg/dL | [facility] | | | PLASMA | | | LABORATORY | | | (LAB) | | | SERVICES, | | | | | | CORE | | + + + + + + | BUN, PLASMA | 9 | 6 - 20 mg/dL | [facility] | | | (LAB) | | | LABORATORY | | | | | | SERVICES, | | | | | | CORE | | + + + + + + | CREATININE | 0.80 | 0.70 - 1.30 | [facility] | | | PLASMA | | mg/dL | LABORATORY | | | (LAB) | | | SERVICES, | | | | | | CORE | | + + + + + + | EGFR | >60 | >60 mL/min | [facility] | | | - | | | LABORATORY | | | SPANISH | | | SERVICES, | | | | | | CORE | | + + + + + + | EGFR NON | >60 | >60 mL/min | [facility] | | | -BINH | | | LABORATORY | | | RICAN | | | SERVICES, | | | | | | CORE | | + + + + + + | SODIUM, | 138 | 136 - 145 | [facility] | | | PLASMA | | mmol/L | LABORATORY | | | (LAB) | | | SERVICES, | | | | | | CORE | | + + + + + + | POTASSIUM, | 4.3 | 3.4 - 5.0 | [facility] | | | PLASMA | | mmol/L | LABORATORY | | | (LAB) | | | SERVICES, | | | | | | CORE | | + + + + + + | CHLORIDE, | 104 | 97 - 108 mmol/L | [facility] | | | PLASMA | | | LABORATORY | | | (LAB) | | | SERVICES, | | | | | | CORE | | + + + + + + | TOTAL CO2, | 25 | 21 - 32 mmol/L | [facility] | | | PLASMA | | | LABORATORY | | | (LAB) | | | SERVICES, | | | | | | CORE | | + + + + + + | CALCIUM, | 8.0 (L) | 8.6 - 10.2 | [facility] | | | PLASMA | | mg/dL | LABORATORY | | | (LAB) | | | SERVICES, | | | | | | CORE | | + + + + + + | ALBUMIN, | 3.1 (L) | 3.5 - 4.7 g/dL | [facility] | | | PLASMA | | | LABORATORY | | | (LAB) | | | SERVICES, | | | | | | CORE | | + + + + + + | PHOSPHORUS, | 3.7 | 2.4 - 4.7 mg/dL | [facility] | | | PLASMA | | | LABORATORY | | | (LAB) | | | SERVICES, | | | | | | CORE | | + + + + + + | POTASSIUM | Mod Hemo | | [facility] | | | CMNT | | | LABORATORY | | | | | | SERVICES, | | | | | | CORE | | + + + + + + | ANION GAP | 9 | mmol/L | [facility] | | | | | | LABORATORY | | | | | | SERVICES, | | | | | | CORE | | + + + + + + | ANION | 11 | 4 - 11 mmol/L | [facility] | | | GAP(ALB | | | LABORATORY | | | CORRECTED) | | | SERVICES, | | | | | | CORE | | + + + + + + + + | Specimen | + + | Blood - Blood | | (substance) | + + + + + | Narrative | Performed At | + + + | Sample hemolyzed. Results for K, Total Bili, Direct Bili, AST, | [facility] | | LDH, or HDL may be inaccurate. Refer to comment under test result. | LABORATORY | | GFR is estimated using the MDRD equation recommended by the National | SERVICES, CORE | | Kidney Disease Education Program. Estimated GFR Interpretive | | | Information: <60 mL/min/1.73 sq m Chronic Kidney | | | Disease <15 mL/min/1.73 sq m Kidney Failure | | | Estimated GFR greater that 60 mL/min/1.73 sq m is of limited clinical | | | value. The MDRD equation is not valid in the following situations: | | | - Patients under 18 years of age - Severe malnutrition or obesity | | | - Vegetarian diet - Rapidly changing kidney function | | + + + + + + + + | Performing | Address | City/State/Zipcode | Phone Number | | Organization | | | | + + + + + | [facility] | [id number] | [place] [address] | | | SERVICES, CORE | [address] | | | + + + + + MAGNESIUM, PLASMA (08/02/2015 2:11 AM PDT) + +-------+ + + + | Component | Value | Ref Range | Performed | Pathologist | | | | | At | Signature | + +-------+ + + + | MAGNESIUM,P | 1.9 | 1.8 - 2.5 mg/dL | [facility] | | | LASMA | | | LABORATORY | | | | | | SERVICES, | | | | | | CORE | | + +-------+ + + + + + | Specimen | + + | Blood - Blood | | (substance) | + + + + + + + | Performing | Address | City/State/Zipcode | Phone Number | | Organization | | | | + + + + + | [facility] | [address] | [place] [address] | | | SERVICES, CORE | [address] | | | + + + + + X-RAY PORTABLE CHEST 1 VIEW (08/02/2015 1:14 AM PDT) + + + + + + | Component | Value | Ref Range | Performed | Pathologist | | | | | At | Signature | + + + + + + | X-RAY | EXAM: HI CHEST 1 VIEW | | | | | PORTABLE | 08/02/15 01:14:00 | | | | | CHEST 1 | HISTORY: Intracranial | | | | | VIEW | trauma. COMPARISON: | | | | | | 08/01/2015 FINDINGS: | | | | | | Support equipment are in | | | | | | unchanged position. The | | | | | | cardiomediastinal | | | | | | silhouetteis borderline | | | | | | enlarged, and normal in | | | | | | contour. Lungs are | | | | | | clear, without | | | | | | focalconsolidation or | | | | | | pulmonary edema. There | | | | | | is no pleural effusion | | | | | | or pneumothorax.No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
--- OUTSIDE RECORDS SUMMARY | 2019-11-29 03:46 | XMS ---
PreManage Notification: YOGESH RODRIGUEZ Security Circular Knitter Events No recent Security Events currently on file CRITERIA MET - Group Notification - [facility] CARE PROVIDERS PRAKASH KEANE Nurse Practitioner: Family Ata [facility] PHONE: [phone] OSCAR LÓPEZ [facility] Current PHONE: [phone] KEENA DE DIOS Counselor: Addiction (Substance Use Disorder) Current PHONE: [phone] Guidelines [facility] Guidelines Date: 02/25/2019 Care Coordination: Has\T\nbsp;received\T\nbsp;mental health services with [facility].\T\nbsp; Please contact [facility] with mental health\T\nbsp;concerns.\T\nbsp; [facility] Guaj[facility]: [phone]\T\nbsp; [place]: [phone]. Care History Medical/Surgical 11/23/2018 [facility] CASE MANAGEMENT REFERRAL MADE- PATIENT HAS [facility] AND NO PCP. E.D. VISIT COUNT (12 MO.) [address] T[address] 3 NOTE: Visits indicate total known visits. ED/UCC VISIT TRACKING (12 MO.) [facility]2019 [facility] [place] [facility] COMPLAINT: - OVERDOSE 09/18/2019 05:[address] [facility] [place] TYPE: Emergency COMPLAINT: - POSS. OVERDOSE DIAGNOSES: - Nicotine dependence, unspecified, uncomplicated - Poisoning by amphetamines, accidental (unintentional), initia - Poisoning by other synthetic narcotics, accidental (unintenti 02/18/2019 17:42 [facility] [place] [facility] TYPE: Emergency DIAGNOSES: 0. ABD PAIN X4 DAYS INPATIENT VISIT TRACKING (12 MO.) No inpatient visits to display in this time frame [id number]
== END 2019-11-29 08:03 | disposition home or self-care (01) ==
LOC: ED 03:44
DX: T40.4X1A Poisoning by other synthetic narcotics, accidental (unintentional), initial encounter (principal); F17.200 Nicotine dependence, unspecified, uncomplicated
CPT/HCPCS: 80053; 80176; 85025; 96360; 99284-25; G0480; J7030

== ENCOUNTER 2020-02-05 23:50 | Emergency (ER) | payer SELFPAY ==
[~2020-02-05] VITALS: Ht 170.2 cm; Wt 77.1 kg
--- OUTSIDE RECORDS SUMMARY | 2020-02-05 23:54 | XMS ---
PreManage Notification: YOGESH RODRIGUEZ Security Senior C Web Developer Events No recent Security Events currently on file CRITERIA MET - Group Notification - [facility] - Has Care Guidelines CARE PROVIDERS PRAKASH KEANE Nurse Practitioner: Family Ata FISHERLEY PHONE: [phone] OSCAR LÓPEZ [facility] Current PHONE: [phone] Guidelines Source: [facility] Services Guidelines Date: 11/29/2019 Care Coordination: Call [phone] or [phone] for a peer or counselor to respond to ED visit Additional care guidelines exist for the following facilities: [facility] ( 02/25/2019 ) Care History Medical/Surgical 11/30/2019 [facility] - [facility] CALLED PATIENT-DISCUSSED RESOURCES AVAILABLE TO PATIENT- - PATIENT ACCEPTED HELP - JOANN CONTACTED [phone]- CINTHYA WILL FOLLOW UP WITH PATIENT TO HAVE PATIENT COME INTO THE CLINIC. [place] VISIT COUNT ([address] [facility] NOTE: Visits indicate total known visits. ED/UCC VISIT TRACKING (12 MO.) [facility]05[facility] [place] [facility] COMPLAINT: - MED CLEARANCE 11/29/2019 03:44 [facility] TYPE: Emergency COMPLAINT: - OVERDOSE DIAGNOSES: - Poisoning by other synthetic narcotics, accidental (unintentional), initial encounter - Nicotine dependence, unspecified, uncomplicated - Poisoning by other synthetic narcotics, accidental (unintentional), initial encounter 09/18/2019 05:23 [facility] TYPE: Emergency COMPLAINT: - POSS. OVERDOSE DIAGNOSES: - Nicotine dependence, unspecified, uncomplicated - Poisoning by amphetamines, accidental (unintentional), initial encounter - Poisoning by other synthetic narcotics, accidental (unintentional), initial encounter 02/18/2019 17:42 [facility] [place] TYPE: Emergency DIAGNOSES: 0. ABD PAIN X4 DAYS INPATIENT VISIT TRACKING (12 MO.) No inpatient visits to display in this time frame [email or web address]
== END 2020-02-06 00:28 | disposition home or self-care (01) ==
LOC: ED 23:50
DX: Z04.1 Encounter for examination and observation following transport accident (principal); F17.200 Nicotine dependence, unspecified, uncomplicated
CPT/HCPCS: 99283